=== PATIENT | female | born 1965 | race Caucasian/White ===

== ENCOUNTER 2016-10-09 13:31 | Day surgery (SDC) | payer OTHER ==
[~2016-10-09] VITALS: Ht 170.2 cm; Wt 80.0 kg
--- NOTE | 2016-10-09 09:05 | PCM.HPANE ---
Patient Data Surgeon Admitting Provider: Attending Provider:Karla Oviedo MD Primary Care Physician:Bigg Monaco MD Other Provider:Gladys Waggoner Anesthesia Reason for Visit Hemorrhage Of Anus And Rectum Ht/WT & BMI Body Mass Index Allergies Coded Allergies: coconut (Verified Allergy, Unknown, 07/31/16) rash/welts tomato (Verified Allergy, Unknown, 07/31/16) rash/welts morphine (Verified Adverse Reaction, Mild, Nausea, 07/31/16) Uncoded Allergies: shellfish (Allergy, Unknown, 07/20/16) itching/swelling Past Anesthesia History Anesthesia History: Denies:: Abnormal Airway, Anesthesia Reactions, Difficult Intubation Diabetes History Hx Diabetes?: No MRSA MRSA: No Medications Blood Thinner: Aspirin, Coumadin Active Scripts Lisinopril 40 Mg Czwend12 Mg PO DAILY #30 TABLET Ref 0 Prov:Camila Connelly MD 07/23/[address] 40 Mg Tablet.dr40 Mg PO DAILYAC 30 Days Prov:Camila Connelly MD 07/23/16 Aspirin Chew 81 Mg Chew81 Mg PO DAILY 30 Days Prov:Camila Connelly MD 07/23/16 Atorvastatin Calcium 40 Mg Wglags92 Mg PO HS 30 Days Prov:Camila Connelly MD 07/23/16 Amlodipine 5 Mg Tablet5 Mg PO DAILY 30 Days Prov:Camila Connelly MD 07/23/16 Reported Medications Fluticasone Propionate (Fluticasone Propionate Nasal)16 Gm Hester.susp2 Hester NS DAILY PRN For Congestion #16 GM Ref 0 07/20/16 Albuterol/Ipratropium (Combivent Respimat Inhal Hester)120 Spr/4 Gm Inhaler2 Puff IH QID PRN For Shortness of Breath #1 INH Ref 0 07/20/16 Citalopram Hydrobromide (Celexa)20 Mg Bgljpw01 Mg PO DAILY Ref 0 07/20/16 Hydrocodone-Acetaminophen 10-325 mg 1 Each Tablet1 Tablet PO Q6H PRN For Pain Ref 0 07/20/16 Docusate Sodium 250 Mg Utugrvj130 Mg PO BID PRN For Constipation Ref 0 07/20/16 Gabapentin 600 Mg Lwksva872 Mg PO TID Ref 0 07/31/15 Discontinued Reported Medications Warfarin Sodium 5 Mg Tablet5 Mg PO DAILY 30 Days Ref 0 07/30/16 History History of ENT Problems?: No HEENT History: Denies:: Abnormal Airway Difficult Intubation Hearing Problem Hx of Heart Problems?: Yes Cardiovascular History: Positive for:: Chest Pain Hypertension Denies:: Cardiac Surgery Congestive Heart Failure Edema Heart Murmur Irregular Heartbeat Pacemaker Thrombophlebitis Hx of Respiratory Problem?: Yes Respiratory History: Positive for:: Dyspnea Hemoptysis Pneumonia Denies:: Asthma COPD Chest Surgery Emphysema Tuberculosis Hx Neurologic Problems?: Yes Neurological History: Positive for:: CVA () Dizziness Denies:: Alzheimer's Disease Dementia Headaches Parkinson's Disease Seizures Hx of GI Problems?: Yes Gastrointestinal History: Positive for:: Gastrointestinal Bleeding (this visit ) Heartburn Rectal Bleeding (2 days ago) Denies:: Diverticulitis Gastroesphageal Reflux Hepatitis Hiatal Hernia Hx of Problems?: Yes Genitourinary History: Positive for:: Urinary Tract Infection Denies:: HX of Hemodialysis Kidney Stones HX of Peritoneal Dialysis: No Female Hx: Positive for:: Endometriosis Denies:: Currently Pelvic Inflammatory Problems with Breasts? Hx Musculoskeletal Problems?: Yes Musculoskeletal History: Positive for:: Back Injury (degenerative disc disease ) Denies:: Joint Replacement Musculoskeletal Trauma Hx of Psycho/Social Problems?: Yes Psycho Social History: Positive for:: Anxiety Hx Depression Denies:: Bipolar Disorder Suicide Attempt Hx Surgeries?: Yes (hysterectomy, tonsilectomy) Hx Any Other Health Problems?: No Other History: Positive for:: Hospitalization ( Heart attack/stroke) Denies:: Cancer Thyroid Disease History Blood Transfusions: Positive for:: Blood Transfusions () Denies:: Blood Transfuse Reaction Hx Diabetes: No Hx Alcohol Use: NoHx Substance Use: No Smoking Status: Current Every Day Smoker Have You Smoked inLast 12 mo: Yes Stop/Bang Risk Assessment Category Category 1A: Patient has history of documented sleep apnea, and HAS NOT received any narcotic, sedative or anesthesia administration during this stay. Category 1B: Patient has history of documented sleep apnea, and HAS received any narcotic , sedative or anesthesia administration during this stay Category 2: Patient has SUSPECTED Obstructive Sleep Apnea, and HAS received any narcotic , sedative or anesthesia administration during this stay. Category 3: Patient has SUSPECTED Obstructive Sleep Apnea and HAS NOT received narcotic, sedative or anesthesia administration during this stay. Category 4: Outpatient in Procedural Areas with known sleep apnea or who screen positive for High Risk via the STOP/BANG questionnaire. Exam Exam General Appearance: Alert, Oriented X3, Cooperative HEENT/AIRWAY: MP 2, Neck Movement (from), Mouth Opening (wnl) Lungs: Clear to Auscultation Heart: Exam Unremarkable Plan Impression Patient chart reviewed, patient interviewed and anesthestic plan with risks, benefits, and alternatives discussed, and informed consent obtained. ASA Physical Status: ASA2 Mod Systemic Disease Anesthetic Plan: GA Bene/Risks/Altern/Consents: Yes HP Complete Prior to Induction: Yes Gomez Sorto MD Oct 09, 2016 09:05
[~2016-10-09 13:31] MED LIST: AMLO5TAB2 PO; ASPI81TA3 PO; ATOR40TA69 PO; CITA20TA PO; DOCU250C2 PO; FLUT16SP NS; GABA600T2 PO; HYDR-3740 PO; IPRA4AER IH; LISI40TA PO; Lactated Ringer's 1,000 ML IV ONE; PANT40TA3 PO; WARF5TAB7 PO
[2016-10-09] MEDS ORDERED: fentaNYL-PF 50 mCg/mL 2 mL Inj ONE (13:32)
[2016-10-09] MEDS ORDERED: Propofol 10,000 mCg/mL 20 mL Inj ONE (13:32)
[2016-10-09 14:21] VITALS: BP 107/70; PULSE 62; O2SAT 99
[2016-10-09] MEDS ORDERED: Lactated Ringer's 1,000 ML IV SCH (14:39)
[2016-10-09] MEDS ORDERED: Ondansetron 2 mg/mL 2 mL Inj IVPUSH PRN (14:40)
[2016-10-09] MEDS ORDERED: MetoCLOpramide 5 mg/mL 2 mL Inj IVPUSH PRN (14:40)
[2016-10-09 15:17] VITALS: BP 92/59; PULSE 59; RESP 14; O2SAT 98
[2016-10-09 15:29] VITALS: BP 90/59; PULSE 58; RESP 14; O2SAT 100
[2016-10-09 15:35] VITALS: BP 98/69; PULSE 56; RESP 14; O2SAT 100
--- NOTE | 2016-10-09 15:36 | PCM.ANEP1 ---
Post Anesthesia Phase 1 PACU Phase 1 Assessment Vital Signs Vital Signs Date Time Temp Pulse Resp B/P Pulse Ox O2 Delivery O2 Flow Rate FiO2 10/09/16 15:29 58 14 90/59 100 Room Air 10/09/16 15:17 59 14 92/59 98 Room Air 10/09/16 14:21 36.5 62 107/70 99 Room Air Anesthetic Administered: GA Level of Alertness: Awake, talking DIAZ's with Equal Strength: Yes Pain: No Nausea or Vomiting: No Oxygen Delivery: Room Air Lungs: Normal Air Movement Gomez Sorto MD Oct 09, 2016 15:36
--- NOTE | 2016-10-09 15:37 | PCM.ANEP2 ---
Post Anesthesia Evaluation ASA/CMS Post Anesthesia VS in Patient's Normal Range?: Yes Resp Stable; Airway Patent?: Yes CV Function & Hydration Stable: Yes Mental Status Recovered?: Yes Pain control Satisfactory?: Yes N/V Control Satisfactory?: Yes Gomez Sorto MD Oct 09, 2016 15:37
--- NOTE | 2016-10-09 16:34 | ENDO ---
[address] [address] ENDOSCOPY PROCEDURE PATIENT: DEMETRIUS NAVA : 1965 MR#: [id number] ADMIT: 10/09/2016 JOB ID: [id number] PROCEDURE: Colonoscopy. INDICATIONS: Rectal bleeding. The patient's ASA classification, Mallampati score and medications as per Dr. Gomez Sorto' anesthesia report. INSTRUMENT USED: PCF H 180 AL. PREPARATION QUALITY: Fair. PROCEDURE DETAILS: After informed consent was obtained, the patient was brought into the GI suite where she was placed on oxygen via nasal cannula and monitored with continuous pulse oximeter, telemetry, and blood pressure monitoring. A time-out was performed and then she was placed in the left lateral decubitus position and medications were administered for sedation. A digital rectal exam was performed which was unremarkable. The colonoscope was then inserted into the rectum and advanced under direct visualization to the cecum which was identified by the presence of the ileocecal valve and appendiceal orifice. Once the cecum was reached, the colonoscope was withdrawn back into the rectum and the mucosa and lumen were examined. In the rectum, retroflexion was performed. Following retroflexion, remaining air in the rectum was suctioned, and procedure was completed. FINDINGS: At the periappendiceal orifice, there appeared to be an approximately 5-6 mm sessile polyp. We attempted to lift the polyp with normal saline, however, following this the polyp inverted into the appendiceal orifice making visualization difficult. I then passed a hot snare and with the attempt to grasp the polyp and then remove it. However, this was partially successful. A portion of the polyp was removed. The remainder remaining was then removed with cold biopsy forceps. The site was irrigated copiously and no remnant of polyp was noted. The remainder the colon exam was otherwise unremarkable. IMPRESSION: Periappendiceal polyp. RECOMMENDATIONS: Await pathology results to determine subsequent colonoscopy. COMPLICATIONS: None. ESTIMATED BLOOD LOSS: Less than 5 mL.
--- NOTE | 2016-10-13 14:05 | PATH ---
SURGICAL PATHOLOGY Attending Physician:Gabriel Castellon CASE STATUS: Signed Out PATIENT NAME: DEMETRIUS NAVA PID: [id number] : 1965 DATE COLLECTED:10/09/2016 00:00 SPECIMEN: Appendix CLINICAL HISTORY: APPENDICEAL FINAL DIAGNOSIS: Polyp at Appendiceal Orifice: Changes consistent with sessile serrated adenoma. ICD10 D12.0 GROSS DESCRIPTION: The specimen is received in one formalin filled container labeled with the patient's name, sublabeled "appendiceal orifice polyp" and consists of multiple portions of tissue and possible debris which aggregate to 0.4 x 0.4 x 0.3 CM. 10/10/2016 DAC ICD-9 CODES: CPT CODES: 92454 Electronically Signed Out Ahsan Holman MD [facility] [address], [place] [address] Technical component performed at [facility], [address] [place] [address] Ave[address], [place], [address]
== END 2016-10-09 23:59 | disposition home or self-care (01) ==
LOC: END 13:31
PROVIDERS: ATTEND Internal Medicine Gastroenterology
DX: D12.0 Benign neoplasm of cecum (principal); K62.5 Hemorrhage of anus and rectum; I10 Essential (primary) hypertension; R42 Dizziness and giddiness; R12 Heartburn; F41.9 Anxiety disorder, unspecified; F17.210 Nicotine dependence, cigarettes, uncomplicated; Z79.899 Other long term (current) drug therapy; Z79.82 Long term (current) use of aspirin; Z79.01 Long term (current) use of anticoagulants
CPT/HCPCS: 45381; 45385; 88305; J2250; J7120